=== PATIENT | female | born 2000 ===

== ENCOUNTER 2021-02-15 02:04 | Outpatient (CLI) | payer OTHER ==
[2021-02-15 02:23] VITALS: BP 124/68
--- NOTE | 2021-02-15 04:14 | Ultrasound Report ---
US OB BPP wo non-stress, US OB limited INDICATION / CLINICAL INFORMATION: wellbeing. COMPARISON: None available. FINDINGS: BREATHING MOVEMENT = 2 GROSS BODY MOVEMENT = 2 TONE = 2 QUALITATIVE AMNIOTIC FLUID VOLUME = 2 TOTAL BIOPHYSICAL SCORE = 8/8 AMNIOTIC FLUID INDEX (cm) = 13.3 PRESENTATION: Cephalic. HEART RATE (beats per minute): 133 IMPRESSION: 1. Single live intrauterine . No significant abnormality. 2. biophysical profile = 12/31 3. IESHA measures 13.3 cm. Signer Name: Cortez Jhaveri MD Signed: 02/15/2021 4:10 AM Workstation Name: [id number]
== END 2021-02-15 04:15 | disposition home or self-care (01) ==
LOC: TRG 02:04 → APU 02:05 → TRG 04:15
PROVIDERS: ATTEND Obstetrics & Gynecology
DX: Z34.93 Encounter for supervision of normal pregnancy, unspecified, third trimester (principal); Z3A.40 40 weeks gestation of pregnancy
CPT/HCPCS: 59025; 76815; 76819